=== PATIENT | male | born 2000 | race Hispanic/Latino ===

== ENCOUNTER 2022-03-04 02:28 | Emergency (ER) | payer SELFPAY ==
[2022-03-04] MEDS ORDERED: Ketorolac Tromethamine 30 MG/ML VIAL ONE (04:35)
== END 2022-03-04 05:23 | disposition home or self-care (01) ==
LOC: ERS 02:28
DX: R07.89 Other chest pain (principal)
CPT/HCPCS: 71045; 93005; 96372; J1885

== ENCOUNTER 2023-12-22 08:36 | Emergency (ER) | payer OTHER | END 2023-12-22 09:20 | LOC: ERS 08:36 | DX: Z02.89 Encounter for other administrative examinations (principal); V89.2XXA Person injured in unspecified motor-vehicle accident, traffic, initial encounter | CPT/HCPCS: 99284 ==